=== PATIENT | female | born 1970 | race Caucasian/White ===

== ENCOUNTER 2017-04-03 22:05 | Emergency (ER) | payer OTHER, BC ==
[~2017-04-03] VITALS: Ht 167.6 cm; Wt 165.0 kg
[~2017-04-03 22:05] MED LIST: CRYS28TA PO; LEVO.2 PO
[2017-04-03 22:07] VITALS: BP 127/76; PULSE 109; RESP 17; TEMP 98.3; O2SAT 97
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
[2017-04-03] MEDS ORDERED: METH2.5T PO (22:32)
[2017-04-03] MEDS ORDERED: FOLI800T PO (22:32)
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
[2017-04-03] MEDS ORDERED: IBUP-232 PO (22:39)
[2017-04-03] MEDS ORDERED: CYCL1TAB29 PO (22:39)
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
[2017-04-03] MEDS ORDERED: KETOROLAC TROMETHAMINE 60 MG/2 ML (IM) VIAL IM ONE (22:45)
[2017-04-03] MEDS ORDERED: ORPHENADRINE INJ 60 MG/2 ML AMP IM ONE (22:45)
[2017-04-03 23:11] VITALS: BP 115/62; PULSE 87; RESP 16; TEMP 98.4; O2SAT 98
== END 2017-04-03 23:32 | disposition home or self-care (01) ==
LOC: PHED 22:05
DX: S39.012A Strain of muscle, fascia and tendon of lower back, initial encounter (principal); T23.072A Burn of unspecified degree of left wrist, initial encounter; W22.11XA Striking against or struck by driver side automobile airbag, initial encounter; Y92.410 Unspecified street and highway as the place of occurrence of the external cause
CPT/HCPCS: 72110; 72170; 73110; 96372; 99284; J1885; J2360

== ENCOUNTER 2018-02-13 16:19 | Emergency (ER) | payer BC, OTHER ==
[~2018-02-13] VITALS: Ht 167.6 cm; Wt 75.5 kg
[~2018-02-13 16:19] MED LIST changes: -CRYS28TA PO; +CYCL10TA PO; +FOLI800T PO; +IBUP-232 PO; +METH2.5T PO
[2018-02-13 16:22] VITALS: BP 110/55; PULSE 86; RESP 16; TEMP 98.1; O2SAT 98
[2018-02-13 17:15] VITALS: O2SAT 98
[2018-02-13] MEDS ORDERED: CLINDAMYCIN 900 MG/NS PREMIX 50 ML IV ONE (17:15)
[2018-02-13 17:41] VITALS: BP 82/55; PULSE 71; RESP 16; O2SAT 96
[2018-02-13 17:46] VITALS: BP 93/56; PULSE 77; RESP 16; TEMP 98.6; O2SAT 97
[2018-02-13 17:48] LABS: BASOPHIL % 0.3 % (0.0-2.0); EOSINOPHIL # 0.1 TH/MM3 (0-0.4); EOSINOPHIL % 0.6 % (0.0-4.0); HEMATOCRIT 38.1 % (35.0-46.0); HEMOGLOBIN 12.9 GM/DL (11.6-15.3); LYMPH % 12.6 % (9.0-44.0); LYMPHOCYTE # 1.6 TH/MM3 (1.0-4.8); MEAN CELL VOLUME 83.7 FL (80.0-100.0); MEAN CORPUSCULAR HEMOGLOBIN 28.3 PG (27.0-34.0); MEAN CORPUSCULAR HGB CONC 33.8 % (32.0-36.0); MEAN PLATELET VOLUME 8.2 FL (7.0-11.0); MONO % 6.4 % (0.0-8.0); MONOCYTE # 0.8 TH/MM3 (0-0.9); NEUT % 80.1 % (16.0-70.0); PLATELET COUNT 291 TH/MM3 (150-450); RED BLOOD COUNT 4.55 MIL/MM3 (4.00-5.30); WHITE BLOOD COUNT 12.5 TH/MM3 (4.0-11.0)
[2018-02-13] MEDS ORDERED: SODIUM CHLOR 0.9% 1000 ML INJ 1,000 ML IV ONE (18:15)
[2018-02-13 18:17] VITALS: BP 91/56; PULSE 77; RESP 16; O2SAT 97
--- NOTE | 2018-02-13 19:00 | PD ---
HPI Chief Complaint: Skin Problem Time Seen by Provider: 16:55 Travel History International Travel<30 days: No Contact w/Intl Traveler<30days: No Traveled to known affect area: No History of Present Illness HPI This is a 47-year-old female history of hypothyroidism, who presents today with complaints of left-sided breast redness and tenderness. Patient had an outpatient ultrasound of her breast that showed inflammation of the milk ducts with no evidence of abscess. She was sent here for antibiotics. The patient has a history of breast implants that were placed 14 years ago. She denies any abrasions or nipple discharge or any abnormalities over the last several days. She states that over the last 2 days, she noted that she was starting to have redness and pain on the left lateral breast. She states that she had a ultrasound done today that showed mastitis without evidence of abscess. She reports that she spoke with Dr. Shad Vera, surgeon who recommended she get started on antibiotics immediately. He states that he will follow-up with her early next week if things are not getting better. PFSH Past Medical History Asthma: No Blood Disorders: No Depression: No Heart Rhythm Problems: No Cancer: Yes (thyroid) Cardiovascular Problems: No High Cholesterol: No Chemotherapy: No Chest Pain: No Congestive Heart Failure: No COPD: No Diabetes: No Diminished Hearing: No Endocrine: No Gastrointestinal Disorders: No Genitourinary: Yes Hepatitis: No Hiatal Hernia: No Hypertension: No Immune Disorder: No Implanted Vascular Access Dvce: No Musculoskeletal: No Neurologic: No Psychiatric: No Reproductive: No Respiratory: No Myocardial Infarction: No Radiation Therapy: No Sleep Apnea: No Thyroid Disease: Yes Tetanus Vaccination: < 5 Years Influenza Vaccination: Yes ?: Not Past Surgical History Abdominal Surgery: No AICD: No Body Medical Devices: BREAST IMPLANTS Cardiac Surgery: No Ear Surgery: No Endocrine Surgery: Yes (thyroidectomy) Eye Surgery: No Genitourinary Surgery: No Gynecologic Surgery: No Hysterectomy: Yes Joint Replacement: No Oral Surgery: Yes (tonsilectomy) Pacemaker: No Thoracic Surgery: No Tonsillectomy: Yes Other Surgery: Yes (microdisectomy, thyrodectomy, breast augmentation) Social History Alcohol Use: Yes (wine occas.) Tobacco Use: No Substance Use: No Allergies-Medications (Allergen,Severity, Reaction): Coded Allergies: *MDRO Multi-Drug Resistant Organism (Verified Allergy, Unknown, 02/13/18) MRSA 2012 wound acetaminophen (Unverified Adverse Reaction, Intermediate, NAUSEA, 02/13/18) hydrocodone (Unverified Adverse Reaction, Intermediate, NAUSEA, 02/13/18) oxycodone (Unverified Adverse Reaction, Intermediate, NAUSEA, 02/13/18) Reported Meds & Prescriptions Reported Meds & Active Scripts Active Tramadol (Tramadol HCl) 50 Mg Tab 50 Mg PO Q8H PRN Clindamycin (Clindamycin HCl) 150 Mg Cap 450 Mg PO TID 14 Days Ibuprofen 600 Mg Tab 600 Mg PO TID Flexeril (Cyclobenzaprine HCl) 10 Mg Tab 10 Mg PO TID Reported Folic Acid 800 Mcg Tab 800 Mcg PO DAILY Methotrexate 2.5 Mg Tab Unknown Dose PO Q7D Synthroid (Levothyroxine Sodium) 200 Mcg Tab 200 Mcg PO DAILY Review of Systems Except as stated in HPI: all other systems reviewed are Neg General / Constitutional: No: Fever, Chills HENT: No: Headaches, Lightheadedness, Neck Pain Cardiovascular: No: Chest Pain or Discomfort, Palpitations Respiratory: No: Cough, Shortness of Breath Gastrointestinal: No: Nausea, Vomiting, Abdominal Pain Skin: Positive Breast Tenderness (Left lateral redness and tenderness), Positive Other (Redness to the left lateral breast no discharge from the nipple. ) Neurologic: No: Weakness, Headache Physical Exam Narrative GENERAL: Well-developed well-nourished female in no acute respiratory distress. SKIN: Focused skin assessment warm/dry. Red erythematous area on the left lateral breast. NECK: Trachea midline. Supple. CARDIOVASCULAR: Regular rate and rhythm. No murmur appreciated. RESPIRATORY: No accessory muscle use. Clear to auscultation. Breath sounds equal bilaterally. MUSCULOSKELETAL: No obvious deformities. No clubbing. No cyanosis. No edema. NEUROLOGICAL: Awake and alert. No obvious cranial nerve deficits. Motor grossly within normal limits. Normal speech. Data Data Last Documented VS Vital Signs Date Time Temp Pulse Resp B/P (MAP) Pulse Ox O2 Delivery O2 Flow Rate FiO2 02/13/18 19:11 02/13/18 19:02 87 16 98 Room Air 02/13/18 17:46 98.6 Orders Orders Complete Blood Count With Diff (02/13/18 16:55) Blood Culture (02/13/18 16:55) Iv Access Insert/Monitor (02/13/18 16:55) Ecg Monitoring (02/13/18 16:55) Oximetry (02/13/18 16:55) Clindamycin 900 Mg/Ns Premix (Cleocin 90 (02/13/18 17:15) Sodium Chlor 0.9% 1000 Ml Inj (Ns 1000 M (02/13/18 18:15) Labs Laboratory Tests Test 02/13/18 17:20 White Blood Count 12.5 TH/MM3 Red Blood Count 4.55 MIL/MM3 Hemoglobin 12.9 GM/DL Hematocrit 38.1 % Mean Corpuscular Volume 83.7 FL Mean Corpuscular Hemoglobin 28.3 PG Mean Corpuscular Hemoglobin Concent 33.8 % Red Cell Distribution Width 13.0 % Platelet Count 291 TH/MM3 Mean Platelet Volume 8.2 FL Neutrophils (%) (Auto) 80.1 % Lymphocytes (%) (Auto) 12.6 % Monocytes (%) (Auto) 6.4 % Eosinophils (%) (Auto) 0.6 % Basophils (%) (Auto) 0.3 % Neutrophils # (Auto) 10.0 TH/MM3 Lymphocytes # (Auto) 1.6 TH/MM3 Monocytes # (Auto) 0.8 TH/MM3 Eosinophils # (Auto) 0.1 TH/MM3 Basophils # (Auto) 0.0 TH/MM3 CBC Comment DIFF FINAL Differential Comment MDM Medical Decision Making Medical Screen Exam Complete: Yes Emergency Medical Condition: Yes Differential Diagnosis Cystitis versus cellulitis versus abscess Narrative Course 47-year-old female who presents after having outpatient ultrasound of the left breast with diagnosis of mastitis. Patient denies any fevers, chills. She does have a warm tender left lateral breast. She has had MRSA in 2011. She has been started on clindamycin 900 mg IV 1 dose. Should be discharged with a prescription for clindamycin. She is instructed to return if she develops any increased redness, pain, fevers chills, or any other reason that concerns her. She will follow-up with Dr. Shad Vera next week for further evaluation. Diagnosis Primary Impression: Acute mastitis of left breast Additional Instructions: Warm compresses 3-4 times daily. Follow-up with Dr. Vera early next week. Return sooner if you develop worsening pain, redness, fevers chills, or any other reason. Med/Other Pt SpecificInfo: Prescription(s) given Scripts Tramadol (Tramadol) 50 Mg Tab 50 MG PO Q8H Y for PAIN, #15 TAB 0 Refills Prov: Kieran Koehler MD 02/13/18 Clindamycin (Clindamycin) 150 Mg Cap 450 MG PO TID for Infection for 14 Days, CAP 0 Refills Prov: Kieran Koehler MD 02/13/18 Disposition: 01 DISCHARGE HOME Condition: Stable Kieran Koehler MD February 13, 2018 19:00
[2018-02-13] MEDS ORDERED: CLIN150C14 PO (19:01)
[2018-02-13 19:02] VITALS: BP 91/53; PULSE 87; RESP 16; O2SAT 98
[2018-02-13] MEDS ORDERED: TRAM50TA PO (19:16)
== END 2018-02-13 19:30 | disposition home or self-care (01) ==
LOC: PHED 16:19
DX: N61.0 Mastitis without abscess (principal); E03.9 Hypothyroidism, unspecified; Z98.82 Breast implant status
CPT/HCPCS: 85025; 87040; 96361; 96365; 99284; J7030